=== PATIENT | male | born 1990 | race Two or more races ===

== ENCOUNTER 2022-02-17 16:11 | Emergency (ER) | payer MEDICAID ==
--- NOTE | 2022-02-17 16:30 | NUR ---
CALLED TO TRIAGE, NO ANSWER
--- NOTE | 2022-02-17 16:53 | NUR ---
CALLED TO TRIAGE,NO ANSWER
--- NOTE | 2022-02-17 17:07 | NUR ---
called for triage not in the [facility] room
== END 2022-02-17 17:09 | disposition left against medical advice (07) ==
LOC: ER 16:30
DX: Z53.21 Procedure and treatment not carried out due to patient leaving prior to being seen by health care provider (principal)